=== PATIENT | male | born 2000 | race Caucasian/White ===

== ENCOUNTER 2018-01-08 21:33 | Emergency (ER) | payer OTHER ==
[~2018-01-08] VITALS: Ht 185.4 cm; Wt 90.7 kg
[2018-01-08 21:35] VITALS: Ht 185.4 cm; Wt 90.7 kg
== END 2018-01-08 21:36 | disposition expired ==
LOC: ED 21:33 → EDBD 21:33 → ED 21:36
DX: I46.9 Cardiac arrest, cause unspecified (principal)